=== PATIENT | female | born 1960 | race Caucasian/White ===

== ENCOUNTER 2019-01-16 17:19 | Emergency (ER) | payer SELFPAY ==
[~2019-01-16] VITALS: Ht 157.5 cm; Wt 90.9 kg
[2019-01-16] MEDS ORDERED: ACET-2744 PO (17:26)
[2019-01-16 19:47] VITALS: BP 110/61
== END 2019-01-16 19:45 | disposition home or self-care (01) ==
LOC: EMS 17:23
DX: M17.11 Unilateral primary osteoarthritis, right knee (principal); Z88.6 Allergy status to analgesic agent